=== PATIENT | female | born 1965 | race Caucasian/White ===

== ENCOUNTER 2024-01-28 20:47 | Emergency (ER) | payer OTHER ==
[~2024-01-28] VITALS: Ht 160 cm; Wt 61.5 kg
[2024-01-28 20:57] VITALS: O2SAT 100
[2024-01-29 01:02] VITALS: BP 110/74; PULSE 63; RESP 16; TEMP 97.5
== END 2024-01-29 01:03 | disposition home or self-care (01) ==
LOC: ER 20:47
DX: S09.90XA Unspecified injury of head, initial encounter (principal); W18.39XA Other fall on same level, initial encounter; Y93.89 Activity, other specified; Y92.89 Other specified places as the place of occurrence of the external cause; Y99.8 Other external cause status
CPT/HCPCS: 99284